=== PATIENT | male | born 1980 | race Two or more races ===

== ENCOUNTER 2017-01-02 12:51 | Emergency (ER) | payer OTHER ==
[2017-01-02 13:12] VITALS: BP 151/94
--- NOTE | 2017-01-02 13:32 | UC ---
Hip/Pelvis Pain - HPI Summary HPI Summary: complaint of right hip pain that started approx 2 weeks ago started to bother him in the danielle nings when herrolled onto his side 3 weeks ago he fell down the stiars in his basement- fell onto his left side and slid down the stairs left chest wall pain has subsided pain started to get much worse yeaterday at work pain is in the hip joint and radites into his buttocks pain is worse with ambulation and pressure resting lessens the pain has been taking ibuprofen with minimal relief - History Of Current Complaint Chief Complaint: UCLowerExtremity Stated Complaint: HIP PAIN Time Seen by Provider: 01/02/17 13:24 Hx Obtained From: Patient - Allergies/Home Medications Allergies/Adverse Reactions: Allergies Allergy/AdvReac Type Severity Reaction Status Date / Time No Known Allergies Allergy Verified 10/05/13 08:58 PMH/Surg Hx/FS Hx/Imm Hx Previously Healthy: Yes Endocrine History Of: Denies: Diabetes, Thyroid Disease, Hyperthyroidism, Hypothyroidism Cardiovascular History Of: Denies: Cardiac Disorders, Hypertension Respiratory History Of: Denies: COPD, Asthma GI/ History Of: Denies: Ulcer Neurological History Of: Denies: TIA, Seizures Psychological History Of: Denies: Anxiety, Depression - Surgical History Surgical History: None Surgery Procedure, Year, and Place: DENIES - Family History Known Family History: Positive: Cardiac Disease - father, Hypertension - both parents Negative: Diabetes - Social History Occupation: Employed Full-time Alcohol Use: Daily Alcohol Amount: 6 beers/day Substance Use Type: None Smoking Status (MU): Current Every Day Smoker Type: Cigarettes Amount Used/How Often: 1 PPD Length of Time of Smoking/Using Tobacco: 20 YEARS Have You Smoked in the Last Year: Yes Cessation Counseling: Patient Advised to Stop Review of Systems Constitutional: Negative Skin: Negative Eyes: Negative ENT: Negative Respiratory: Negative Cardiovascular: Negative Gastrointestinal: Negative Genitourinary: Negative Motor: Negative Neurovascular: Negative Musculoskeletal: Other: - right hip pain Neurological: Negative Psychological: Negative All Other Systems Reviewed And Are Negative: Yes Physical Exam Triage Information Reviewed: Yes Appearance: Well-Appearing, No Pain Distress, Thin Vital Signs: Initial Vital Signs Temp 99.7 F 01/02/17 13:06 Pulse 86 01/02/17 13:06 Resp 16 01/02/17 13:06 BP 151/94 01/02/17 13:06 Pulse Ox 100 01/02/17 13:06 Vital Signs Reviewed: Yes Eyes: Positive: Conjunctiva Clear ENT: Positive: Pharynx normal, TMs normal Neck: Positive: No Lymphadenopathy Respiratory: Positive: Lungs clear, Normal breath sounds, No respiratory distress, No accessory muscle use Cardiovascular: Positive: RRR, No Murmur, Pulses Normal Abdomen Description: Positive: Nontender, No Organomegaly, Soft Bowel Sounds: Positive: Present Musculoskeletal: Positive: No Edema, Other: - Right HIP No bony deformities, slight tenderness , ecchymosis over hip joint. Normal ROM upon flexion & extension, internal & external rotation, abduction, & adduction. Crossed straight leg-raising sign negative (sitting and supine). Neurological: Positive: Alert Psychological Exam: Normal Skin Exam: Normal Hip Injury Course/Dx - Course Course Of Treatment: exam completed. imaging due to tenderness and bruising over the hip joint. x-ray shows no fractures but recommends MRI or ctscan if pain doesn't improve. will start naproxen for pain and followup with pcp - Differential Dx/Diagnosis Provider Diagnoses: elevated blood pressure, right hip pain Discharge - Discharge Plan Condition: Stable Disposition: HOME Patient Education Materials: Hip Pain (ED) Referrals: No Primary Care Phys,NOPCP [Primary Care Provider] - [facility] [place] [facility] [Outside] [facility] [Outside] Additional Instructions: Your blood pressure is elevated. Please contact your primary care provider within 1 day -4 weeks for further evaluation. Increase fluids and rest Take naproxen as directed for pain Please review your discharge instructions. please call physician referral service to set up primary care provider If your symptoms do not improve please call orthopedics or return to urgent care
--- NOTE | 2017-01-02 14:06 | RAD ---
HISTORY: Right hip pain, subacute trauma COMPARISONS: None VIEWS: 3, Frontal view of the pelvis with frontal and frog-leg views of the right hip FINDINGS: BONE DENSITY: Normal. BONES: There is no displaced fracture. JOINTS: There is no arthropathy. ALIGNMENT: There is no dislocation. SOFT TISSUES: Unremarkable. OTHER FINDINGS: None. IMPRESSION: NO RADIOGRAPHIC EVIDENCE FOR HIP FRACTURE. X-RAYS MAY BE NEGATIVE WITH NONDISPLACED HIP FRACTURE, IF THERE IS PERSISTENT CLINICAL CONCERN, RECOMMEND CONSIDERATION OF MRI. IN THE SETTING OF CONTRAINDICATION TO MRI OR LIMITATION IN EMERGENT ACCESS TO MRI, CT WOULD BE SUGGESTED.
== END 2017-01-02 14:30 | disposition home or self-care (01) ==
LOC: UCEAST 12:51
DX: M25.551 Pain in right hip (principal); R03.0 Elevated blood-pressure reading, without diagnosis of hypertension; F17.210 Nicotine dependence, cigarettes, uncomplicated
CPT/HCPCS: 99212; G0463

== ENCOUNTER 2019-07-18 00:19 | Emergency (ER) | payer OTHER ==
--- NOTE | 2019-07-18 00:53 | ED ---
Adult Trauma - HPI Summary HPI Summary: This patient is a 39 year old male brought in by EMS presenting to [facility] with a chief complaint of head trauma one hour ago. The patient states he drank heavily today (at least 12 beers) and fell in his garage onto concrete, hitting his head. He states he lost consciousness for approximately one minute. He reports multiple lacerations to his head. - History of Current Complaint Chief Complaint: EDHeadInjury Stated Complaint: HEAD LAC PER EMS Time Seen by Provider: 07/18/19 00:33 Hx Obtained From: Patient Mechanism of Injury: Fall Loss of Consciousness: prolonged (minutes) Pain Intensity: 4 Pain Scale Used: 0-10 Numeric - Allergy/Home Medications Allergies/Adverse Reactions: Allergies Allergy/AdvReac Type Severity Reaction Status Date / Time No Known Allergies Allergy Verified 02/18/19 09:16 Home Medications: Home Medications NK [No Home Medications Reported] 07/18/19 [History Confirmed 07/18/19] PMH/Surg Hx/FS Hx/Imm Hx Endocrine/Hematology History: Denies: Hx Diabetes, Hx Thyroid Disease Cardiovascular History: Denies: Hx Hypercholesterolemia, Hx Hypertension, Hx Peripheral Vascular Disease Respiratory History: Denies: Hx Asthma, Hx Chronic Obstructive Pulmonary Disease (COPD) GI History: Denies: Hx Ulcer Musculoskeletal History: Denies: Hx Arthritis, Hx Osteoporosis Sensory History: Denies: Hx Cataracts, Hx Contacts or Glasses, Hx Glaucoma Opthamlomology History: Denies: Hx Cataracts, Hx Contacts or Glasses, Hx Glaucoma Neurological History: Denies: Hx Headaches, Hx Seizures, Hx Transient Ischemic Attacks (TIA) Psychiatric History: Denies: Hx Anxiety, Hx Depression - Surgical History Surgery Procedure, Year, and Place: DENIES Infectious Disease History: No Infectious Disease History: Denies: Hx Hepatitis, Hx Human Immunodeficiency Virus (HIV), Traveled Outside the [place] in Last 30 Days - Family History Known Family History: Positive: Cardiac Disease - father, Hypertension - both parents Negative: Diabetes - Social History Alcohol Use: Daily Alcohol Amount: 8-10/day Substance Use Type: Reports: Marijuana Hx Tobacco Use: No Smoking Status (MU): Current Every Day Smoker Type: Cigarettes Amount Used/How Often: 1 PPD Length of Time of Smoking/Using Tobacco: 20 YEARS Have You Smoked in the Last Year: Yes Review of Systems - ROS Summary Review of Systems Summary: NK [No Home Medications Reported] 07/18/19 [History Confirmed 07/18/19] Positive: Other - Laceration Positive: Headache All Other Systems Reviewed And Are Negative: Yes Physical Exam - Summary Physical Exam Summary: General: Well-developed, thin MALE. No acute distress. Smells of ETOH. Unkempt. HEENT: Normocephalic, Atraumatic. (-) Raccoons Eyes, (-) Battles Sign, (-) hemotympanum Eyes: Conjuctiva normal, PERRL. Ears: TMs within normal limits. Nares: (-) discharge, (-) erythema. Oropharynx: Clear, mucous membranes moist, (-) exudates. Neck: Soft, FROM, (-) lymphadenopathy, (-) thyromegaly, (-) JVD. Cardiovascular: Normal sinus rhythm, (-) murmur. Lungs: Clear to auscultation bilaterally (-) wheezes, (-) rales, (-) rhonchi. Abdomen: Soft, non-tender, non-distended, (-) organomegaly, normal bowel sounds. Neuro: Alert and oriented x3, no focal deficits, pleasantly Cooperative. Musculoskeletal: (-) spinal tenderness, (-) deformity. Skin: Warm, dry, (-) rash. Swelling and 0.8 cm laceration lateral left eyebrow. 1.3 cm lac in the left parietal area. Triage Information Reviewed: Yes Vital Signs On Initial Exam: Initial Vitals Temp Pulse Resp BP Pulse Ox 99.7 F 72 20 156/104 97 07/18/19 00:22 07/18/19 00:22 07/18/19 00:22 07/18/19 00:22 07/18/19 00:22 Vital Signs Reviewed: Yes Procedures - Sedation Patient Received Moderate/Deep Sedation with Procedure: No - Laceration/Wound Repair 1 Location: head Description: Linear Length, Depth and Shape: 2.5 cm Closure: [place] #__ - 4 2 Location: face Description: Linear Length, Depth and Shape: Stellate lesion 2 cm in total length. Suture Type: Nylon Number of Sutures: 3 Diagnostics - Vital Signs Vital Signs Temp Pulse Resp BP Pulse Ox 07/18/19 00:22 99.7 F 72 20 156/104 97 - Laboratory Result Diagrams: 07/18/19 00:52 07/18/19 00:52 Lab Statement: Any lab studies that have been ordered have been reviewed, and results considered in the medical decision making process. - CT Brain CT Interpretation Completed By: Radiologist Summary of CT Findings: No acute intracranial findings. ED Provider has reviewed this report. - EKG 0050 Cardiac Rate: NL - 67 BPM EKG Rhythm: Sinus Rhythm Summary of EKG Findings: No STEMI. ED Provider has reviewed and interpreted this report. Adult Trauma Course/Dx - Course Course Of Treatment: This patient is a 39 year old male brought in by EMS presenting to [facility] with a chief complaint of head trauma one hour ago. Brain CT was unremarkable. Physical exam revealed one laceration near the left eyebrow and one left parietal laceration. The patient's facial laceration was stitched (3) and his parietal laceration was stapled (4). The patient states his Tetanus vaccination is UTD. A plan for discharge was discussed with the patient and he was agreeable with this plan. - Diagnoses Provider Diagnoses: Alcohol intoxication, Head trauma Discharge ED - Sign-Out/Discharge Documenting (check all that apply): Patient Departure - Discharge - Discharge Plan Condition: Stable Disposition: HOME Patient Education Materials: Laceration (ED) Referrals: No Primary Care Phys,NOPCP [Primary Care Provider] - Additional Instructions: Return to ED with new or worsening symptoms. Get your stitches taken out in 7- 10 days. - Billing Disposition and Condition Condition: STABLE Disposition: Home - Attestation Statements Document Initiated by Nakia: Yes Documenting Scribe: Marcio Drew Provider For Whom Nakia is Documenting (Include Credential): Denae Perkins MD Scribe Attestation: Marcio Stephens, scribed for Denae Perkins MD on 07/18/19 at 0302. Scribe Documentation Reviewed: Yes Provider Attestation: The documentation as recorded by the Marcio stallings accurately reflects the service I personally performed and the decisions made by me, Denae Perkins MD Status of Scribe Document: Viewed
[2019-07-18 00:58] LABS: ABS Eosinophils 0.3 10^3/ul (0-0.6); ABS Lymphocytes 1.6 10^3/ul (1.0-4.8); ABS Monocytes 0.7 10^3/ul (0-0.8); ABS Neutrophils 4.5 10^3/ul (1.5-7.7); Eosinophil % 4.5 %; Hematocrit 47 % (42-52); Hemoglobin 16.1 g/dL (14.0-18.0); Lymphocyte % 22.2 %; Mean Corpuscular HGB Conc 34 g/dL (31-36); Mean Corpuscular Hemoglobin 32 pg (27-31); Mean Corpuscular Volume 94 fL (80-94); Mean Platelet Volume 6.3 fL (7.4-10.4); Nucleated Red Blood Cells % 0.1; Platelet Count 268 10^3/uL (150-450); Red Blood Count 4.97 10^6 /uL (4.18-5.48); Red Cell Distribution Width 13 % (10-15); White Blood Count 7.2 10^3/uL (3.5-10.8)
[2019-07-18 01:06] LABS: INR 1.03 (0.82-1.09)
[2019-07-18 01:16] LABS: Albumin 4.7 g/dL (3.2-5.2); Albumin/Globulin Ratio 1.8 (1-3); BUN/Creatinine Ratio 10.3 (8-20); Calcium 9.1 mg/dL (8.6-10.3); EGFR African American 187.8 (>60); EGFR Non-African American 155.2 (>60); Globulin 2.6 g/dL (2-4); Magnesium 2.1 mg/dL (1.9-2.7); Potassium 3.6 mmol/L (3.5-5.0); Total Bilirubin 1.2 mg/dL (0.2-1.0); Total Protein 7.3 g/dL (6.4-8.9)
[2019-07-18] MEDS ORDERED: Bacitracin OINTMENT* 0.5% 0.5 oz TUBE TOPICAL ONE (02:35)
[2019-07-18 02:45] VITALS: BP 142/88
== END 2019-07-18 02:46 | disposition home or self-care (01) ==
LOC: ED 00:19
DX: F10.129 Alcohol abuse with intoxication, unspecified (principal); S01.112A Laceration without foreign body of left eyelid and periocular area, initial encounter; S01.81XA Laceration without foreign body of other part of head, initial encounter; W18.30XA Fall on same level, unspecified, initial encounter; Y92.015 Private garage of single-family (private) house as the place of occurrence of the external cause; F17.210 Nicotine dependence, cigarettes, uncomplicated
CPT/HCPCS: 12013; 36415; 70450; 80053; 80320; 83605; 83735; 84443; 84484; 85025; 85610; 93005; 99283; A9270-GY; G0480

== ENCOUNTER 2019-07-30 07:50 | Emergency (ER) | payer OTHER ==
[2019-07-30 08:03] VITALS: BP 144/91
--- NOTE | 2019-07-30 08:25 | UC ---
HPI Wound/Suture Re-check - HPI Summary HPI Summary: Patient is a 39-year-old male who presents to the urgent care with chief complaint of a foreign body in his right foot the last couple days. He doesn't really know what kind of foreign body. He also requests for his sutures to be removed as well as his isaiah. He had 3 sutures in the left eyebrow and 4 isaiah in the left temporal area. He has no pain, no swelling or redness. He has no other complaints - History Of Current Complaint Chief Complaint: UCSkin Stated Complaint: SUTURE AND STAPLE REMOVAL Time Seen by Provider: 07/30/19 08:09 Hx Obtained From: Patient Onset/Duration: Sudden Onset Pain Intensity: 0 - Allergies/Home Medications Allergies/Adverse Reactions: Allergies Allergy/AdvReac Type Severity Reaction Status Date / Time No Known Allergies Allergy Verified 07/30/19 08:03 PMH/Surg Hx/FS Hx/Imm Hx Previously Healthy: Yes - Surgical History Surgical History: None Surgery Procedure, Year, and Place: DENIES - Family History Known Family History: Positive: Cardiac Disease - father, Hypertension - both parents Negative: Diabetes - Social History Alcohol Use: Daily Alcohol Amount: 6 beers/day Substance Use Type: None Smoking Status (MU): Heavy Every Day Tobacco Smoker Type: Cigarettes Amount Used/How Often: 1 PPD Length of Time of Smoking/Using Tobacco: 20 YEARS Have You Smoked in the Last Year: Yes Review of Systems All Other Systems Reviewed And Are Negative: Yes Constitutional: Positive: Negative Skin: Positive: Negative Eyes: Positive: Negative ENT: Positive: Negative Respiratory: Positive: Negative Cardiovascular: Positive: Negative Gastrointestinal: Positive: Negative Genitourinary: Positive: Negative Motor: Positive: Negative Neurovascular: Positive: Negative Musculoskeletal: Positive: Negative Neurological: Positive: Negative Psychological: Positive: Negative Is Patient Immunocompromised?: No Physical Exam - Summary Physical Exam Summary: VITAL SIGNS: Reviewed. GENERAL: Patient is a well developed and nourished male who is lying comfortably in the stretcher. Patient is not in any acute respiratory distress. HEAD AND FACE: No signs of trauma. No ecchymosis, hematomas or skull depressions. No sinus tenderness. EYES: PERRLA, EOMI x 2, No injected conjunctiva, no nystagmus. EARS: Hearing grossly intact. Ear canals and tympanic membranes are within normal limits. MOUTH: Oropharynx within normal limits. NECK: Supple, trachea is midline, no adenopathy, no JVD, no carotid bruit, no c- spine tenderness, neck with full ROM. CHEST: Symmetric, no tenderness at palpation LUNGS: Clear to auscultation bilaterally. No wheezing or crackles. CVS: Regular rate and rhythm, S1 and S2 present, no murmurs or gallops appreciated. ABDOMEN: Soft, non-tender. No signs of distention. No rebound no guarding, and no masses palpated. Bowel sounds are normal. EXTREMITIES: FROM in all major joints, no edema, no cyanosis or clubbing. NEURO: Alert and oriented x 3. No acute neurological deficits. Speech is normal and follows commands. SKIN: Dry and warm. And there is a white colored Pinpoint area and the sole of the right foot. There is no erythema no swelling no tenderness. The repaired lacerations are clean and dry and intact. Vital Signs: Initial Vital Signs Temp 99.5 F 07/30/19 08:00 Pulse 86 07/30/19 08:00 Resp 18 07/30/19 08:00 BP 144/91 07/30/19 08:00 Pulse Ox 99 07/30/19 08:00 Course/Dx - Course Course Of Treatment: Addendum with 3 sutures of 4 isaiah without any complications. X-ray of the right fourth there is no foreign body. I removed his white FB w/o any complications. It was very superficial. - Diagnosis Provider Diagnosis: Visit for suture removal Discharge ED - Sign-Out/Discharge Documenting (check all that apply): Patient Departure All imaging exams completed and their final reports reviewed: Yes - Discharge Plan Condition: Stable Disposition: HOME Patient Education Materials: Soft Tissue Foreign Body (ED), Stitches Removal ( ED) Referrals: No Primary Care Phys,NOPCP [Primary Care Provider] - [facility] [Outside] Additional Instructions: Patient was discharged home with follow-up with the primary care physician. - Billing Disposition and Condition Condition: STABLE Disposition: Home
== END 2019-07-30 09:19 | disposition home or self-care (01) ==
LOC: UCEAST 07:50
DX: S01.81XD Laceration without foreign body of other part of head, subsequent encounter (principal); R23.8 Other skin changes; F17.210 Nicotine dependence, cigarettes, uncomplicated; S01.112D Laceration without foreign body of left eyelid and periocular area, subsequent encounter; X58.XXXD Exposure to other specified factors, subsequent encounter

== ENCOUNTER 2019-11-12 07:18 | Day surgery (SDC) | payer OTHER ==
[~2019-11-12 07:18] MED LIST: Buffered Lidocaine 1% SYRIN* 1 ML/SYRINGE INTRADERM ONE; Lactated Ringers 1000 ML Bag* 1,000 ML IV SCH
[2019-11-12] MEDS ORDERED: fentaNYL* 50 MCG/ML 2 ML VIAL (100 MCG VIAL) ONE (08:11)
[2019-11-12] MEDS ORDERED: Midazolam* 1 MG/ML 2 ML VIAL (2 MG) ONE (08:11)
[2019-11-12] MEDS ORDERED: ceFAZolin 2 GM PREMIX in ORs 2 GM/50 ML BAG ONE (08:18)
[2019-11-12] MEDS ORDERED: Naloxone* 0.4 MG/ML 1 ML VIAL IV PRN (10:03)
[2019-11-12] MEDS ORDERED: HYDROmorphone INJ1* 1 MG/ML SYRINGE IV PRN (10:03)
[2019-11-12] MEDS ORDERED: Bupivacaine 0.5%* 50 ML MDV VIAL ONE (10:17)
[2019-11-12] MEDS ORDERED: Propofol* 10 MG/ML 20 ML BTL ONE (10:39)
[2019-11-12] MEDS ORDERED: Dexamethasone IV* 4 MG/ML 1 ML (4 MG) ONE (10:39)
[2019-11-12] MEDS ORDERED: Ondansetron INJ* 2 MG/ML VIAL ONE (10:39)
[2019-11-12] MEDS ORDERED: Ketorolac INJ* 30 MG/ML 1 ML VIAL ONE (11:11)
--- NOTE | 2019-11-12 11:16 | OP ---
Operative Report - Blank - Operative Report Date of Operation: 11/12/19 Note: PATIENT: Julián Spence DATE OF : 1980 DATE OF SURGERY: 11/12/2019 SURGEON: Og Sultana MD SHEET METAL OPERATOR: KATELIN Rowe, whos assistance was necessary for positioning, retraction, help with instrumentation, and closure. ANESTHESIOLOGIST: Dr. Austin PREOPERATIVE DIAGNOSIS: Right foot hallux rigidus POSTOPERATIVE DIAGNOSIS: Right foot hallux rigidus OPERATION: Right foot first metatarsophalangeal joint cheilectomy with microfracture ANESTHESIA: General IMPLANTS: none TOURNIQUET TIME: Less than 1 hour with an ankle Esmarch tourniquet SPECIMENS: None ESTIMATED BLOOD LOSS: Minimal COMPLICATIONS: none STATUS: Stable from the operating room to the recovery room and then home. INDICATIONS FOR PROCEDURE: Julián has had persistent pain and limted ROM from right hallux rigidus refractory to non-op measures. Both operative and non-operative treatment alternatives were reviewed. Further, the nature and risks of surgery were reviewed in careful detail, in the office as well as the pre-operative holding area. Our discussions regarding the risks of surgery included, but were not limited to, infection, wound problems, nerve injury, neuroma, RSD, persistent symptoms, blood clot, fracture, need for further surgery, failure of the surgery , and even the remote chance of catastrophic complication. DESCRIPTION OF PROCEDURE: The patient was seen in the preoperative holding unit and informed written consent was obtained. The appropriate extremity was marked. The patient was then brought to the operating room and carefully positioned on the operating room table. Anesthesia was induced. All bony prominences were padded with great care. A chlorhexidine based pre-scrub was performed followed by a chloraprep prep and drape in standard sterile fashion. A surgical safety pause was then conducted in which we confirmed the appropriate patient, extremity, planned procedure, availability of equipment, indication and administration of prophylactic antibiotics, and DVT prophylaxis in the form of a compression boot on the non-surgical extremity. I began with an Esmarch exsanguination of the limb and placement of an ankle Esmarch tourniquet. I then made an approximately 4 cm incision overlying the first metatarsophalangeal joint dorsally. We mobilized the extensor hallucis longus tendon laterally and then came sharply through the dorsal capsule in line with the skin incision. We then exposed the metatarsal head, with care taken to protect the collateral ligaments. Inflamed synovium was excised with a 15 blade scalpel. I utilized an osteotome to remove approximately 20% of the dorsal first metatarsal head and in line with the first metatarsal shaft, removing the dorsal spur. This was contoured at the medial and lateral aspects of the osteotomy in order to prevent any sharp bony prominences. I then excised the dorsal aspect of the proximal phalanx at the joint with a rongeur. There were no spurs left or inflamed invaginating synovium. I then performed a microfracture using a 0.045 K wire on the first metatarsal head and base of the proximal phalanx. I performed a microfracture where the bone was denuded of cartilage. Afterwards, range of motion was much improved. The wounds were copiously irrigated and meticulously closed in layers utilizing 3-0 Monocryl and 3-0 nylon. A sterile dressing was then applied. The patient was then awakened from anesthesia and transferred to the recovery room in stable condition. There were no complications. All needle and sponge counts were correct at the end of the case. ATTESTATION: I attest I was present and scrubbed and performed the critical portions of the procedure myself. POSTOPERATIVE PLAN: The patient will remain heel weightbearing for anticipated duration of 2 weeks. Followup will be in 2 weeks for likely suture removal and Steri-Strip application.
[2019-11-12 12:17] VITALS: BP 149/95
[2019-11-12] MEDS ORDERED: Ibuprofen TAB* 600 MG ONE (12:20)
== END 2019-11-12 12:56 | disposition home or self-care (01) ==
LOC: OR 07:18
PROVIDERS: ATTEND Orthopaedic Surgery
DX: M20.21 Hallux rigidus, right foot (principal); G89.18 Other acute postprocedural pain; F17.210 Nicotine dependence, cigarettes, uncomplicated; R01.1 Cardiac murmur, unspecified; M19.90 Unspecified osteoarthritis, unspecified site
CPT/HCPCS: A9270-GY; J0690; J1100; J1885; J2250; J2405; J2704; J3010; J3490